=== PATIENT | female | born 2000 | race Caucasian/White ===

== ENCOUNTER → 2018-05-16 | Emergency (ER) | payer OTHER ==
[~2018-05-16] VITALS: Ht 149.9 cm; Wt 49.4 kg
[~2018-05-16] MED LIST: KETO10TA2 PO
== END | disposition home or self-care (01) ==
LOC: ER 20:07
DX: S50.01XA Contusion of right elbow, initial encounter (principal); W18.09XA Striking against other object with subsequent fall, initial encounter; Y93.89 Activity, other specified; Y92.832 Beach as the place of occurrence of the external cause; Y99.8 Other external cause status

== ENCOUNTER 2018-07-24 12:51 | Emergency (ER) | payer OTHER ==
[~2018-07-24] VITALS: Ht 149.9 cm; Wt 47.6 kg
[2018-07-24] MEDS ORDERED: PEPCID AC20 MG PO (21:07)
[2018-07-24] MEDS ORDERED: ZOFRAN ODT4 MG SL (21:07)
[2018-07-24] MEDS ORDERED: LEVSIN/SL0.125 MG SL (21:07)
[2018-07-24] MEDS ORDERED: ULTRACET PO (21:07)
== END 2018-07-24 21:29 | disposition home or self-care (01) ==
LOC: ER 12:51
DX: K29.70 Gastritis, unspecified, without bleeding (principal); R10.11 Right upper quadrant pain

== ENCOUNTER 2018-11-06 10:31 | Emergency (ER) | payer OTHER ==
[~2018-11-06] VITALS: Ht 149.9 cm; Wt 45.4 kg
[~2018-11-06 10:31] MED LIST changes: +LEVSIN/SL0.125 MG SL; +PEPCID AC20 MG PO; +ULTRACET PO; +ZOFRAN ODT4 MG SL
== END 2018-11-06 17:52 | disposition home or self-care (01) ==
LOC: ER 10:31
DX: K29.70 Gastritis, unspecified, without bleeding (principal)

== ENCOUNTER 2018-11-07 19:22 | Emergency (ER) | payer OTHER ==
[~2018-11-07] VITALS: Ht 152.4 cm; Wt 44.5 kg
== END 2018-11-07 20:14 | disposition home or self-care (01) ==
LOC: ER 19:22
DX: R06.02 Shortness of breath (principal); F06.4 Anxiety disorder due to known physiological condition

== ENCOUNTER 2019-09-17 01:22 | Emergency (ER) | payer OTHER ==
[~2019-09-17] VITALS: Ht 149.9 cm; Wt 48.1 kg
[2019-09-17] MEDS ORDERED: LANSOPRAZOLE15 MG (01:35)
== END 2019-09-17 12:40 | disposition home or self-care (01) ==
LOC: ER 01:22
DX: K29.70 Gastritis, unspecified, without bleeding (principal)